=== PATIENT | male | born 1985 | race Caucasian/White ===

== ENCOUNTER 2020-02-02 01:04 | Emergency (ER) | payer OTHER ==
[~2020-02-02] VITALS: Ht 172.7 cm; Wt 90.7 kg
[2020-02-02 01:06] VITALS: BP 151/91
--- NOTE | 2020-02-02 01:30 | NUR ---
RADIOLOGY AT BEDSIDE FOR XRAY
[2020-02-02] MEDS ORDERED: AMOX/CLAVULANATE 875 MG TABLET ONE (01:31)
[2020-02-02] MEDS: AMOX/CLAVULANATE 875 MG TABLET PO ONE (01:35)
== END 2020-02-02 01:54 ==
LOC: ER 01:04
DX: S61.011A Laceration without foreign body of right thumb without damage to nail, initial encounter (principal); W50.3XXA Accidental bite by another person, initial encounter; Y93.89 Activity, other specified; Y92.89 Other specified places as the place of occurrence of the external cause; Y99.8 Other external cause status
CPT/HCPCS: 73130; 99283; A6403